=== PATIENT | female | born 1990 | race African-American/Black ===

== ENCOUNTER 2020-01-06 02:11 | Emergency (ER) | payer SELFPAY ==
[~2020-01-06] VITALS: Ht 170.2 cm; Wt 108.9 kg
--- NOTE | 2020-01-06 02:42 | NUR ---
PT BIB HER WITH A C/O HEADACHE X 1 WK GETTING WORSE TONIGHT. PT WAS TRIAGED AND A URINE SAMPLE WAS OBTAINED AND SENT TO LAB. PT WAS PLACED ON THE MONITOR AND CONTINUOUS PULSE OX.
--- NOTE | 2020-01-06 02:50 | NUR ---
IV STARTED AND PT REC'D MEDICATION ORDERED.
[2020-01-06] MEDS ORDERED: SUMATRIPTAN SUCCINATE 6 MG/0.5 ML VIAL SQ ONE ×2 (02:52→03:00)
[2020-01-06] MEDS ORDERED: METOCLOPRAMIDE HCL 10 MG/2 ML VIAL ONE (02:52)
[2020-01-06] MEDS ORDERED: IV NS 0.9% 1,000 ML IV ONE (03:00)
[2020-01-06] MEDS ORDERED: METOCLOPRAMIDE HCL 10 MG/2 ML VIAL IV ONE (03:00)
--- NOTE | 2020-01-06 03:01 | NUR ---
PT IS GOING TO CT VIA [facility]
--- NOTE | 2020-01-06 03:09 | NUR ---
PT RETURNED FROM CT.
--- NOTE | 2020-01-06 03:17 | NUR ---
PT WAS RECONNECTED TO THE MONITOR AND CONTINUOUS PULSE OX. PT IS C/O 12/29 HEADACHE. OVERHEAD LIGHTS WERE TURNED OFF.
--- NOTE | 2020-01-06 03:23 | NUR ---
DR GEE IS AT THE BEDSIDE SPEAKING TO THE PT.
--- NOTE | 2020-01-06 03:57 | NUR ---
CALLING AUGUSTIN RE: HEAD CT. CT IS GOING ON THE HOTLINE.
[2020-01-06 04:23] VITALS: BP 130/88
--- NOTE | 2020-01-06 04:24 | NUR ---
IV removed. Catheter intact and site benign. Pressure and 4x4 applied to site. No bleeding noted. Patient discharged to home in stable condition. Written and verbal after care instructions given. Patient verbalizes understanding of instruction AND RX. PT AMBULATED OUT WITH A STEADY GAIT. PT'S IS COMING TO PICK HER UP. VSS
== END 2020-01-06 04:24 | disposition home or self-care (01) ==
LOC: ER 02:11
DX: G43.909 Migraine, unspecified, not intractable, without status migrainosus (principal)
CPT/HCPCS: 70450; 84703; 96372; 96374; 99284; J2765; J3030; J7030

== ENCOUNTER 2022-04-07 17:18 | Emergency (ER) | payer OTHER ==
[~2022-04-07] VITALS: Ht 170.2 cm; Wt 102.5 kg
--- NOTE | 2022-04-07 18:57 | NUR ---
HAND ICER AT BEDSIDE FOR XRAY
[2022-04-07] MEDS ORDERED: IV NS 0.9% 1,000 ML BAG IV ONE ×3 (19:00→20:30)
--- NOTE | 2022-04-07 19:05 | NUR ---
BIBSELF C/O MULTIPLE SYMPTOMS OF BLURRED VISION,FREQUENT THIRST AND URINATION,DRY MOUTH FOR 2-3 WEEKS. PT A/OX4. TOLERATING R/A AT 98% WITH NO RESP DISTRESS; KUSSMAL BREATHING NOTED. CONNECTED PT TO POX AND MONITOR. SAFETY MEASURES IN PLACE.
--- NOTE | 2022-04-07 19:35 | NUR ---
LASHELL WEI - DR. DARCY LIND AWARE
--- NOTE | 2022-04-07 19:38 | NUR ---
URINE COLELCTED AND SENT TO LAB
--- NOTE | 2022-04-07 19:38 | NUR ---
RAC #18G S/L BLOOD COLLECTED AND SENT TO LAB
[2022-04-07 19:59] LABS: ALBUMIN 4.1 g/dL (3.4-5.0); BILIRUBIN,DIRECT 0.2 mg/dL (0.0-0.2); BILIRUBIN,TOTAL 1.1 mg/dL (0.2-1.0); CALCIUM, SERUM 9.5 mg/dL (8.5-10.1); CREATININE 1.4 mg/dL (0.6-1.3); POTASSIUM 4.5 mmol/L (3.5-5.1)
--- NOTE | 2022-04-07 20:06 | NUR ---
CRITICAL LAB: GLUCOSE 730, DR. DARCY LIND AWARE
[2022-04-07] MEDS ORDERED: INSULIN REGULAR, HUMAN 100 UNIT/ML 10 ML VIAL ONE (20:09)
[2022-04-07] MEDS ORDERED: INSULIN REGULAR, HUMAN 100 UNIT/ML 10 ML VIAL IV ONE (20:30)
[2022-04-07 20:35] LABS: BILIRUBIN,URINE NEGATIVE (NEGATIVE); COLOR,URINE YELLOW (YELLOW); LEUKOCYTE ESTERASE ,URINE NEGATIVE (NEGATIVE); NITRITE, URINE NEGATIVE (NEGATIVE); PH,URINE 5.5 (5.0-8.0); PROTEIN,URINE NEGATIVE (NEGATIVE); UGLUCOSE >=1000 mg/dL (NEGATIVE); UROBILINOGEN,URINE 0.2 EU/dL (0.2)
[2022-04-07 20:37] LABS: BASOPHILS % (AUTO) 0.2 % (0.0-2.0); EOSINOPHILS % (AUTO) 0.3 % (0.0-6.0); HEMATOCRIT 47 % (33-45); HEMOGLOBIN 15.5 g/dL (11.5-14.8); LYMPHOCYTES # (AUTO) 3.3 K/uL (0.8-4.8); LYMPHOCYTES % (AUTO) 35.4 % (20.0-44.0); MEAN CORPUSCULAR HGB CONC 33 g/dl (31.0-36.0); MEAN CORPUSCULAR VOLUME 94 fL (82-100); MONOCYTES # (AUTO) 0.6 K/uL (0.1-1.30); MONOCYTES % (AUTO) 6.1 % (2.0-12.0); NEUTROPHILS # (AUTO) 5.4 K/uL (1.8-8.9); PLATELET COUNT (AUTO) 266 K/uL (150-450); RED BLOOD CELL COUNT(AUTO) 5.01 MIL/uL (4.0-5.2); WHITE BLOOD COUNT (AUTO) 9.3 K/uL (4.3-11.0)
--- NOTE | 2022-04-07 20:43 | NUR ---
LASHELL YOUNG 470; DR. DARCY LIND AWARE
--- NOTE | 2022-04-07 20:43 | NUR ---
COVID ANTIGEN SWAB COLLECTED AND SENT TO LAB
[2022-04-07 21:17] LABS: BACTERIA,URINE None seen /HPF (None Seen); RBC,URINE 21-50 /HPF (0-2); WBC,URINE 0-2 /HPF (0-3)
--- NOTE | 2022-04-07 21:40 | NUR ---
ANG MAC CM TO CALL MD FOR PEER TO PEER LIBBY [phone]
[2022-04-07 21:41] VITALS: BP 164/105
--- NOTE | 2022-04-07 21:42 | NUR ---
MONALISA LIND LIBBY [phone]
--- NOTE | 2022-04-07 21:43 | NUR ---
MARK LIND PAGED BALAJI [phone]
--- NOTE | 2022-04-07 21:44 | NUR ---
DR. DARCY LIND ON PHONE CALL WITH DR. TURNER Addendum: 04/07/[address] DARCY LIND ON PHONE CALL WITH DR. ANDERSON
--- NOTE | 2022-04-07 21:46 | NUR ---
FOOD PROVIDED TO PT; TOLERATING WELL.
--- NOTE | 2022-04-07 23:08 | NUR ---
[phone]: ROOM [address] KC CALL FOR REPORT [phone] AUTH: [id number] WILL NOTIFY [facility] ETA OF TRANSPORT WHEN SET UP
--- NOTE | 2022-04-07 23:20 | NUR ---
[facility] CALLED TRANSFER SETUP FOR 8 AM ETA DUE TO FULL BOOKINGS OVERNIGHT. CAN CLOSING MACHINE OPERATOR [facility] CALLED AND NOTIFIED.
--- NOTE | 2022-04-07 23:46 | NUR ---
[facility] FOR TRANSPORT TO [facility]. ETA 10 MIN
--- NOTE | 2022-04-07 23:51 | NUR ---
REPORT GIVEN TO ETHAN HOLCOMB FROM [facility]
--- NOTE | 2022-04-08 00:36 | NUR ---
pt picked up by [facility] for transport to [facility].
== END 2022-04-08 00:36 | disposition short-term general hospital (02) ==
LOC: ER 17:22
DX: E11.65 Type 2 diabetes mellitus with hyperglycemia (principal); E11.00 Type 2 diabetes mellitus with hyperosmolarity without nonketotic hyperglycemic-hyperosmolar coma (NKHHC); E87.20 Acidosis, unspecified; Z97.5 Presence of (intrauterine) contraceptive device; R03.0 Elevated blood-pressure reading, without diagnosis of hypertension; Z20.822 Contact with and (suspected) exposure to COVID-19
CPT/HCPCS: 99285; 96374; 71045; 96361; 87426; 93005; 85025; 80048; 83690; 80076; 81001; 36415; 87081; 82962 ×2; J1815; J7030 ×3; C9803